=== PATIENT | male | born 1945 | race Caucasian/White ===

== ENCOUNTER 2025-02-19 16:12 | Emergency (ER) | payer OTHER ==
[~2025-02-19] VITALS: Ht 172.7 cm; Wt 72.6 kg
[2025-02-19 16:57] LABS: PLATELET COUNT (AUTO) 217 K/uL (150-450); RED BLOOD CELL COUNT(AUTO) 3.44 MIL/uL (4.5-6.0); RED CELL DISTRIBUTION WIDTH 14.4 % (11.5-15.0); WHITE BLOOD COUNT (AUTO) 6.8 K/uL (4.3-11.0)
[2025-02-19 17:05] LABS: CALCIUM, SERUM 8.2 mg/dL (8.5-10.1); CREATININE 5.3 mg/dL (0.6-1.3); SODIUM SERUM 140 mmol/L (136-145); UREA NITROGEN, BLOOD 74 mg/dL (7-18)
[2025-02-19 17:11] LABS: ASPARTATE AMINOTRANSFERASE 10 U/L (15-37); TOTAL PROTEIN, SERUM 6.5 g/dL (6.4-8.2)
[2025-02-19 18:16] LABS: NT-PRO BNP 1152.0 pg/mL (0-125)
[2025-02-19] MEDS: IV NS 0.9% 1,000 ML BAG IV ONE (18:25)
[2025-02-19 20:01] VITALS: BP 135/80; TEMP 98; O2SAT 97
== END 2025-02-19 20:02 | disposition left against medical advice (07) ==
LOC: ER 16:16 → UNDOADMIN 17:49 → TELE 17:49 → ER 20:02 → UNDODISIN 22:00
DX: R55 Syncope and collapse (principal); I12.0 Hypertensive chronic kidney disease with stage 5 chronic kidney disease or end stage renal disease; E11.22 Type 2 diabetes mellitus with diabetic chronic kidney disease; N18.6 End stage renal disease; R79.89 Other specified abnormal findings of blood chemistry; R00.1 Bradycardia, unspecified
CPT/HCPCS: 99285; 96360; 71045; 93005; 85025; 80048; 80076; 36415; 84439; 84443; 84484 ×2; 83880; J7030; G0378